=== PATIENT | male | born 1990 | race Asian ===

== ENCOUNTER 2018-03-02 17:54 | Emergency (ER) | payer OTHER ==
--- NOTE | 2018-03-02 18:09 | EDPHY ---
H & P Stated Complaint: playing soccer yesterday/fell x1 increased back and neck stiffness today Time Seen by Provider: 03/02/18 18:05 HPI/ROS: CHIEF COMPLAINT: Thoracic back pain HISTORY OF PRESENT ILLNESS: Patient is a 27-year-old healthy man who was playing soccer yesterday and did a bicycle kick. He states that he landed on his back. He had thoracic back pain at the time that is persisted throughout the day today. No weakness numbness or paresthesias. No difficulty walking. He has not taken any medications. He is here because he wants an x-ray. He denies headache or head injury. He denies neck pain or shoulder pain. REVIEW OF SYSTEMS: Constitutional: denies: chills, fever, recent illness, recent injury EENTM: denies: blurred vision, double vision, nose congestion Respiratory: denies: cough, shortness of breath Cardiac: denies: chest pain, irregular heart rate, lightheadedness, palpitations Gastrointestinal/Abdominal: denies: abdominal pain, diarrhea, nausea, vomiting, blood streaked stools Genitourinary: denies: dysuria, frequency, hematuria, pain Musculoskeletal: See HPI Skin: denies: lesions, rash, jaundice, bruising Neurological: denies: headache, numbness, paresthesia, tingling, dizziness, weakness Hematologic/Lymphatic: denies: blood clots, easy bleeding, easy bruising Immunologic/allergic: denies: HIV/AIDS, transplant EXAM: GENERAL: Well-appearing, well-nourished and in no acute distress. HEAD: Atraumatic, normocephalic. EYES: Pupils equal round and reactive to light, extraocular movements intact, sclera anicteric, conjunctiva are normal. ENT: TMs normal, nares patent, oropharynx clear without exudates. Moist mucous membranes. NECK: Nontender, Normal range of motion, supple without lymphadenopathy or JVD. LUNGS: Breath sounds clear to auscultation bilaterally and equal. No wheezes rales or rhonchi. HEART: Regular rate and rhythm without murmurs, rubs or gallops. ABDOMEN: Soft, nontender, normoactive bowel sounds. No guarding, no rebound. No masses appreciated. BACK: Mid thoracic pain, no swelling or deformity. No CVA tenderness, no spinal tenderness, step-offs or deformities EXTREMITIES: Normal range of motion, no pitting or edema. No clubbing or cyanosis. NEUROLOGICAL: Cranial nerves II through XII grossly intact. Normal speech, normal gait. 5/5 strength, normal movement in all extremities, normal sensation PSYCH: Normal mood, normal affect. SKIN: Warm, dry, normal turgor, no visible rashes or lesions. Source: Patient Exam Limitations: No limitations - Personal History Current Tetanus/Diphtheria Vaccine: Unsure - Medical/Surgical History Hx Asthma: No Hx Chronic Respiratory Disease: No Hx Diabetes: No Hx Cardiac Disease: No Hx Renal Disease: No Hx Cirrhosis: No Hx Alcoholism: No Hx HIV/AIDS: No Hx Splenectomy or Spleen Trauma: No Other PMH: denies - Family History Significant Family History: No pertinent family hx - Social History Smoking Status: Current every day smoker Alcohol Use: Sober Drug Use: None Constitutional: Initial Vital Signs Temperature (C) 36.2 C 03/02/18 18:01 Heart Rate 65 03/02/18 18:01 Respiratory Rate 16 03/02/18 18:01 Blood Pressure 121/49 H 03/02/18 18:01 O2 Sat (%) 97 03/02/18 18:01 O2 Delivery Mode Room Air Allergies/Adverse Reactions: No Known Allergies Allergy (Unverified 03/02/18 18:01) Home Medications: Medication Instructions Recorded NK [No Known Home Meds] 03/02/18 Medical Decision Making - Diagnostics Imaging: I viewed and interpreted images myself (No fracture or compression) ED Course/Re-evaluation: I offered the patient ibuprofen for pain which she declines and states that he will take at home. We will obtain x-rays. 7:30 p.m. we discussed the x-ray results. The patient is reassured. He is eager to go home. I again offered pain medications here he prefer to take ibuprofen home. I encouraged rest. Differential Diagnosis: Partial list of the Differential diagnosis considered include but were not limited to; muscle strain, contusion compression fracture, and although unlikely based on the history and physical exam, I also considered spinous process fracture, spinal cord injury, neuropathy. I discussed these differential diagnoses and the plan with the patient as well as the usual and expected course. The patient understands that the diagnosis is provisional and that in medicine we are not always correct and that further workup is often warranted. Usual and customary warnings were given. All of the patient's questions were answered. The patient was instructed to return to the emergency department should the symptoms at all worsen or return, otherwise to followup with the physician as we discussed. Departure - Departure Disposition: Home, Routine, Self-Care Clinical Impression: Thoracic back pain Qualifiers: Chronicity: acute Back pain laterality: midline Qualified Code(s): M54.6 - Pain in thoracic spine Condition: Fair Instructions: Back Pain (ED) Referrals: NONE *PRIMARY CARE P,. [Primary Care Provider] - As per Instructions Melvina Lisa MD [[facility] [place] - 3-4 days, if not improved Stand Alone Forms: School Excuse
[2018-03-02 19:53] VITALS: BP 93/61
== END 2018-03-02 19:53 | disposition home or self-care (01) ==
DX: S29.9XXA Unspecified injury of thorax, initial encounter (principal); F17.200 Nicotine dependence, unspecified, uncomplicated; X50.9XXA Other and unspecified overexertion or strenuous movements or postures, initial encounter; Y99.8 Other external cause status; Y93.66 Activity, soccer